=== PATIENT | female | born 1975 | race Caucasian/White ===

== ENCOUNTER 2018-06-10 18:53 | Emergency (ER) | payer SELFPAY ==
[~2018-06-10] VITALS: Ht 165.1 cm; Wt 95.3 kg
[2018-06-10] MEDS ORDERED: diphenhydrAMINE 50 MG/ML INJ (BENADRYL) IVP ONE (19:30)
[2018-06-10] MEDS ORDERED: NS IV 1000 ML 1,000 ML IV SCH (19:30)
[2018-06-10] MEDS ORDERED: KETOROLAC 30 MG/ML VIAL IVP ONE (19:30)
[2018-06-10] MEDS ORDERED: PROCHLORPERAZINE 10 MG/2ML INJ (COMPAZINE) IV ONE (19:30)
--- NOTE | 2018-06-10 19:34 | ED Headache ---
General Chief Complaint: Head/Cervical Problems Stated Complaint: MIGRAINE,FACIAL NUMBNESS Source: patient Exam Limitations: no limitations History of Present Illness Date Seen by Provider: Jun 10, 2018 Time Seen by Provider: 19:31 Initial Comments To ER with reports of a migraine and facial numbness. She has a history of migraines for the past 17 years, it started when she was with her daughter. She takes Topamax daily but this does not seem to be helping. She used to get migraines very infrequently but for the past 2-3 months has had them about twice per week. She has facial numbness with this and this includes both sides of her face and the entire upper middle and lower parts of the face. She denies any other tingling or neurologic symptoms. 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 Timing/Duration: increasing Severity/Quality: moderate Location: frontal Associated Symptoms: denies symptoms Allergies and Home Medications Allergies Coded Allergies: No Known Drug Allergies (Unverified , 06/10/18) Home Medications Divalproex Sodium 250 Mg Tablet.dr, 250 MG PO BID Prescribed by: KYM MEJIA on 06/10/182012 Patient Home Medication List Home Medication List Reviewed: Yes Review of Systems Review of Systems Constitutional: see HPI Eyes: No Symptoms Reported Ears, Nose, Mouth, Throat: no symptoms reported Respiratory: no symptoms reported Cardiovascular: no symptoms reported Genitourinary: no symptoms reported Musculoskeletal: no symptoms reported Skin: no symptoms reported Psychiatric/Neurological: No Symptoms Reported Past Vndwque-Cjcdjm-Qdiqvq Hx Patient Social History Recent Foreign Travel: No Contact w/Someone Who Travel: No Physical Exam Vital Signs Vital Signs - First Documented 06/10/18 19:07 Temp 97.8 Pulse 80 Resp 16 B/P (MAP) 133/78 (96) Pulse Ox 99 O2 Delivery Room Air Capillary Refill : Height, Weight, BMI Height: '" Weight: lbs. oz. kg; BMI Method: General Appearance: WD/WN, no apparent distress, other (face is symmetrical, no drooping. No slurred speech. Conversation is appropriate. No arm drift) HEENT: PERRL/EOMI, normal ENT inspection Neck: non-tender, full range of motion Respiratory: no respiratory distress, no accessory muscle use Gastrointestinal: normal bowel sounds, non tender, soft Extremities: normal range of motion, non-tender Psychiatric: alert, oriented x 3 Crainal Nerves: normal hearing, normal speech, PERRL Skin: normal color, warm/dry Progress/Results/Core Measures Results/Orders Lab Results Laboratory Tests Test 06/10/18 19:20 Range/Units White Blood Count 7.6 4.3-11.0 10^3/uL Red Blood Count 4.64 4.35-5.85 10^6/uL Hemoglobin 14.3 11.5-16.0 G/DL Hematocrit 43 35-52 % Mean Corpuscular Volume 92 80-99 FL Mean Corpuscular Hemoglobin 31 25-34 PG Mean Corpuscular Hemoglobin Concent 34 32-36 G/DL Red Cell Distribution Width 12.8 10.0-14.5 % Platelet Count 255 130-400 10^3/uL Mean Platelet Volume 10.6 H 7.4-10.4 FL Neutrophils (%) (Auto) 48 42-75 % Lymphocytes (%) (Auto) 39 12-44 % Monocytes (%) (Auto) 10 0-12 % Eosinophils (%) (Auto) 3 0-10 % Basophils (%) (Auto) 1 0-10 % Neutrophils # (Auto) 3.6 1.8-7.8 X 10^3 Lymphocytes # (Auto) 2.9 1.0-4.0 X 10^3 Monocytes # (Auto) 0.7 0.0-1.0 X 10^3 Eosinophils # (Auto) 0.3 0.0-0.3 10^3/uL Basophils # (Auto) 0.1 0.0-0.1 10^3/uL Sodium Level 142 135-145 MMOL/L Potassium Level 3.8 3.6-5.0 MMOL/L Chloride Level 109 H 98-107 MMOL/L Carbon Dioxide Level 23 21-32 MMOL/L Anion Gap 10 5-14 MMOL/L Blood Urea Nitrogen 13 7-18 MG/DL Creatinine 0.93 0.60-1.30 MG/DL Estimat Glomerular Filtration Rate > 60 BUN/Creatinine Ratio 14 Glucose Level 97 70-105 MG/DL Calcium Level 9.1 8.5-10.1 MG/DL Corrected Calcium 9.1 8.5-10.1 MG/DL Total Bilirubin 0.3 0.1-1.0 MG/DL Aspartate Amino Transf (AST/SGOT) 17 5-34 U/L Alanine Aminotransferase (ALT/SGPT) 11 0-55 U/L Alkaline Phosphatase 90 40-136 U/L Total Protein 6.8 6.4-8.2 GM/DL Albumin 4.0 3.2-4.5 GM/DL My Orders Orders - KYM MEJIA APRN Cbc With Automated Diff (06/10/18 19:29) Comprehensive Metabolic Panel (06/10/18 19:29) Ct Head Wo (06/10/18 19:29) Iv Heplock-Insert (Order) (06/10/18 19:29) Ketorolac Injection (Toradol Injection) (06/10/18 19:30) Prochlorperazine Injection (Compazine In (06/10/18 19:30) Diphenhydramine Injection (Benadryl Inje (06/10/18 19:30) Ns Iv 1000 Ml (Sodium Chloride 0.9%) (06/10/18 19:30) Medications Given in ED Current Medications Medications Dose Ordered Sig/Jarod Route Start Time Stop Time Status Last Admin Dose Admin Diphenhydramine HCl 25 mg ONCE ONCE IVP 06/10/18 19:30 06/10/18 19:31 DC 06/10/18 19:49 25 MG Ketorolac Tromethamine 15 mg ONCE ONCE IVP 06/10/18 19:30 06/10/18 19:31 DC 06/10/18 19:49 15 MG Prochlorperazine Edisylate 5 mg ONCE ONCE IV 06/10/18 19:30 06/10/18 19:31 DC 06/10/18 19:49 5 MG Vital Signs/I&O 06/10/18 19:07 Temp 97.8 Pulse 80 Resp 16 B/P (MAP) 133/78 (96) Pulse Ox 99 O2 Delivery Room Air Departure Impression Primary Impression: Headache Qualified Codes: R51 - Headache Disposition: 01 HOME, SELF-CARE Condition: Improved Departure-Patient Inst. Decision time for Depature: 20:11 Referrals: NO,LOCAL PHYSICIAN (PCP) Primary Care Physician Patient Instructions: Migraine Headache (DC) Add. Discharge Instructions: 1. Return to ER for any concerns 2. Follow-up with your doctor next week 3. All discharge instructions reviewed with patient and/or family. Voiced understanding. Scripts Divalproex Sodium (Depakote) 250 Mg Tablet. 250 MG PO BID, #20 TAB Prov: KYM MEJIA APRN 06/10/18 Work/School Note: Work Release Form Date Seen in the Emergency Department: Jun 10, 2018 Return to Work: Jun 11, 2018 KYM MEJIA APRN Jun 10, 2018 19:34
[2018-06-10 19:36] LABS: BASOPHILS # (AUTO) 0.1 10^3/uL (0.0-0.1); BASOPHILS % (AUTO) 1 % (0-10); EOSINOPHILS # (AUTO) 0.3 10^3/uL (0.0-0.3); EOSINOPHILS % (AUTO) 3 % (0-10); HEMATOCRIT 43 % (35-52); HEMOGLOBIN 14.3 G/DL (11.5-16.0); LYMPHOCYTES # (AUTO) 2.9 X 10^3 (1.0-4.0); LYMPHOCYTES % (AUTO) 39 % (12-44); MEAN CORPUSCULAR HEMOGLOBIN 31 PG (25-34); MEAN CORPUSCULAR HGB CONC 34 G/DL (32-36); MEAN CORPUSCULAR VOLUME 92 FL (80-99); MEAN PLATELET VOLUME 10.6 FL (7.4-10.4); MONOCYTES # (AUTO) 0.7 X 10^3 (0.0-1.0); MONOCYTES % (AUTO) 10 % (0-12); NEUTROPHILS # (AUTO) 3.6 X 10^3 (1.8-7.8); NEUTROPHILS % (AUTO) 48 % (42-75); PLATELET COUNT 255 10^3/uL (130-400); RED BLOOD COUNT 4.64 10^6/uL (4.35-5.85); RED CELL DISTRIBUTION WIDTH 12.8 % (10.0-14.5); WHITE BLOOD COUNT 7.6 10^3/uL (4.3-11.0)
[2018-06-10 19:47] LABS: ALANINE AMINOTRANSFERASE 11 U/L (0-55); ALKALINE PHOSPHATASE 90 U/L (40-136); BILIRUBIN,TOTAL 0.3 MG/DL (0.1-1.0); BUN/CREATININE RATIO 14; CALCIUM 9.1 MG/DL (8.5-10.1); CARBON DIOXIDE 23 MMOL/L (21-32); CHLORIDE 109 MMOL/L (98-107); CREATININE SERUM 0.93 MG/DL (0.60-1.30); GFR ESTIMATED > 60; GLUCOSE 97 MG/DL (70-105); POTASSIUM 3.8 MMOL/L (3.6-5.0); SODIUM 142 MMOL/L (135-145); TOTAL PROTEIN 6.8 GM/DL (6.4-8.2)
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
[2018-06-10] MEDS ORDERED: DIVA250T2 PO (20:13)
[2018-06-10 20:47] VITALS: BP 134/90
== END 2018-06-10 20:49 | disposition home or self-care (01) ==
LOC: ER 18:56
DX: R51 Headache (principal); Z86.69 Personal history of other diseases of the nervous system and sense organs
CPT/HCPCS: 36415; 70450; 80053; 85025

== ENCOUNTER 2018-08-11 12:30 | Emergency (ER) | payer SELFPAY ==
[~2018-08-11] VITALS: Ht 165.1 cm; Wt 95.3 kg
[~2018-08-11 12:30] MED LIST: DIVA250T2 PO
--- NOTE | 2018-08-11 12:45 | NUR ---
TRIAGE PROCESS WHILE IN WAITING ROOM AWAITING RM OPENINGS. TRIAGE INFO PER ARIELA RN TO THIS RN.
--- NOTE | 2018-08-11 13:40 | NUR ---
TO WAITING RM TO RE-ASSESS PT AND FIND PT IS OUTSIDE WALKING AND SMOKING.
--- NOTE | 2018-08-11 13:50 | NUR ---
PT IS IN WAITING RM NOW. NO CHG IN ASSESSMENTS. PT DENIES TO THIS NURSE ANY INJURY.
--- NOTE | 2018-08-11 14:20 | NUR ---
TO ED02 AMBULATORY. PT UPDATED DR WILL BE UPDATED SHE IS IN ROOM. PT HAS HAD HER XRAY WHILE WAITING IN WAITING ROOM.
--- NOTE | 2018-08-11 14:23 | NUR ---
DR AGUILERA TO .
--- NOTE | 2018-08-11 14:28 | ED Upper Extremity ---
General Chief Complaint: Upper Extremity Stated Complaint: LT HAND INJ Source: patient Exam Limitations: no limitations History of Present Illness Date Seen by Provider: Aug 11, 2018 Time Seen by Provider: 14:15 Initial Comments Patient presents to ER by private conveyance with chief complaint of approximate 1 week ago she started having some pain and swelling in her left hand. She denies knowing how it happened. She has some old bruising. She's never had a fracture or surgery to this hand before. Does not take any medicines. She has no other significant medical history. She says she does not normally like going to doctors so that is why she put off getting checked out but now she's having some decreased range of motion in her fifth digit. The patient is left-handed. Allergies and Home Medications Allergies Coded Allergies: No Known Drug Allergies (Unverified , 06/10/18) Home Medications Divalproex Sodium 250 Mg Tablet.dr, 250 MG PO BID Prescribed by: KYM MEJIA on 06/10/182012 Patient Home Medication List Home Medication List Reviewed: Yes Review of Systems Constitutional: No chills, No malaise EENTM: No ear pain, No eye pain Respiratory: No cough Gastrointestinal: No abdominal pain, No constipation, No nausea Genitourinary: No discharge, No dysuria Past Boieitv-Hjjcsy-Erfbri Hx Patient Social History Alcohol Use: Denies Use Smoking Status: Current Everyday Smoker Type Used: Cigarettes 2nd Hand Smoke Exposure: Yes Recent Foreign Travel: No Recent Hopitalizations: No Seasonal Allergies Seasonal Allergies: No Past Medical History Surgeries: Yes (CYST REMOVAL ON BRAIN ) Section, Cystectomy Respiratory: No Cardiac: No Neurological: Yes Headaches /Migraines Genitourinary: No Gastrointestinal: No Musculoskeletal: No Endocrine: No HEENT: No Cancer: No Psychosocial: Yes Anxiety, Depression Integumentary: No Blood Disorders: No Adverse Reaction/Blood Tranf: No Physical Exam Vital Signs Capillary Refill : Height, Weight, BMI Height: 5'5.00" Weight: 210lbs. oz. 95.403939jj; BMI Method:Stated General Appearance: WD/WN, no apparent distress HEENT: PERRL/EOMI, normal ENT inspection, pharynx normal Cardiovascular: normal peripheral pulses, regular rate, rhythm Wrist: Yes normal inspection, Yes non-tender, Yes no evidence of injury, Yes normal ROM Hand: normal ROM, Left, ecchymosis (medial portion of the palm and dorsum of her hand consistent with a possible boxer's fracture from striking something with her hand.), limited ROM (Celexa about 10% total flexion of the fifth digit but full extension of the wrist and all the fingers.), soft tissue tenderness ( third fourth and fifth metacarpals), swelling Neurologic/Psychiatric: no motor/sensory deficits, alert, oriented x 3 Progress/Results/Core Measures Results/Orders My Orders Orders - HUMBERTO AGUILERA Hand 3 View Left (08/11/18 13:55) Progress Progress Note : Time: 14:27 Progress Note She has a large healing bruise looks to be about 7-10 days old over the third fourth and fifth metacarpals and carpals consistent with possible boxer fracture. Mild swelling not much deformity. Range of motion is pretty good. We' ll get an x-ray. She's declining anything for pain. She's probably not get much benefit from ice at this point. Diagnostic Imaging Diagonstic Imaging: Xray Plain Films/CT/US/NM/MRI: hand (left) Comments [facility], [place] NAME: GAURAV BLAKELY [facility] REC#: [id number] PT STATUS: REG ER : 1975 PHYSICIAN: HUMBERTO AGUILERA MD ADMIT DATE: 08/11/18/ER FS Draft Date of Exam:08/11/18 HAND 3 VIEW LEFT INDICATION: Left hand pain and injury. TIME OF EXAM: 01:47 p.m. Three views of left hand demonstrate longitudinally oriented fracture involving the proximal phalanx of the fifth finger. Fracture line does extend to the articular surface of the MCP joint. No significant displacement or angulation is seen. Remaining phalanges are intact. Metacarpals are intact. Carpus is unremarkable. IMPRESSION: Proximal phalangeal fracture of the fifth finger with intra-articular extension to the MCP joint. Dictated on workstation # [id number] Dict: 08/11/18 1429 Trans: 08/11/18 1432 [facility] [id number] Interpreted by: TONI GIRALDO MD Electronically signed by: Reviewed: Reviewed by Me Departure Impression Primary Impression: Fracture of phalanx of hand Qualified Codes: S62.609A - Fracture of unspecified phalanx of unspecified finger, initial encounter for closed fracture Disposition: 01 HOME, SELF-CARE Condition: Stable Departure-Patient Inst. Decision time for Depature: 14:59 Referrals: SHELBIE STEWART (PCP) Primary Care Physician BLAKE LAND DO Patient Instructions: Finger Fracture (DC) Add. Discharge Instructions: Your finger fracture of the pinky finger has some difficulties feeling as I recommend that you follow up this week with orthopedics at [facility]. Called them and request an appointment today. Use Tylenol and/or ibuprofen as needed for pain. Keep your hand swells a lot you can apply an ice pack to it. Elevate her hand above the level of your heart for swelling or pain. You may also tape your pinky finger to your ring finger as a splint to reduce the movement and therefore decrease the pain. If you have breakthrough pain is not controlled with these measures then you may take one tablet of hydrocodone every 6 hours as needed. All discharge instructions reviewed with patient and/or family. Voiced understanding. Scripts Hydrocodone Bit/Acetaminophen (Hydrocodone/Acetaminophen 5/325mg Tablet) 1 Tab Tab 1 EACH PO Q6H PRN for PAIN-MODERATE MDD 10, #10 TAB 0 Refills Prov: HUMBERTO AGUILERA 08/11/18 Copy Copies To 1: BLAKE LAND DO HUMBERTO AGUILERA Aug 11, 2018 14:28
--- NOTE | 2018-08-11 14:32 | Diagnostic Imaging Report ---
INDICATION: Left hand pain and injury. TIME OF EXAM: 01:47 p.m. Three views of left hand demonstrate longitudinally oriented fracture involving the proximal phalanx of the fifth finger. Fracture line does extend to the articular surface of the MCP joint. No significant displacement or angulation is seen. Remaining phalanges are intact. Metacarpals are intact. Carpus is unremarkable. IMPRESSION: Proximal phalangeal fracture of the fifth finger with intra-articular extension to the MCP joint. Dictated by: Dictated on workstation # [id number]
[2018-08-11] MEDS ORDERED: ACHD5005 PO (15:01)
[2018-08-11 15:08] VITALS: BP 137/87
== END 2018-08-11 15:08 | disposition home or self-care (01) ==
LOC: EDUNIT# 12:30 → ER FS 12:34
DX: S62.617A Displaced fracture of proximal phalanx of left little finger, initial encounter for closed fracture (principal); G43.909 Migraine, unspecified, not intractable, without status migrainosus; F41.9 Anxiety disorder, unspecified; F32.9 Major depressive disorder, single episode, unspecified; F17.210 Nicotine dependence, cigarettes, uncomplicated; Z98.890 Other specified postprocedural states; Z90.6 Acquired absence of other parts of urinary tract; X58.XXXA Exposure to other specified factors, initial encounter
CPT/HCPCS: 73130

== ENCOUNTER 2018-09-25 11:46 | Emergency (ER) | payer SELFPAY ==
[~2018-09-25] VITALS: Ht 165.1 cm; Wt 95.3 kg
[~2018-09-25 11:46] MED LIST changes: +ACHD5005 PO
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
[2018-09-25 12:55] LABS: CLARITY,URINE CLEAR; COLOR,URINE YELLOW; PROTEIN,URINE NEGATIVE (NEGATIVE)
[2018-09-25 12:56] LABS: BACTERIA,URINE NEGATIVE /HPF; BILIRUBIN,URINE NEGATIVE (NEGATIVE); GLUCOSE, URINE (UA) NEGATIVE (NEGATIVE); KETONES,URINE NEGATIVE (NEGATIVE); LEUKOCYTE ESTERASE ,URINE NEGATIVE (NEGATIVE); NITRITE,URINE NEGATIVE (NEGATIVE); RBC,URINE RARE /HPF; SQUAMOUS EPITHELIAL CELL,UR 0-2 /HPF; UROBILINOGEN,URINE 0.2 MG/DL (NORMAL)
[2018-09-25 12:57] LABS: AMPHETAMINE SCREEN, URINE NEGATIVE (NEGATIVE); BARBITURATE SCREEN URINE NEGATIVE (NEGATIVE); BENZODIAZEPINES SCREEN URINE NEGATIVE (NEGATIVE); CANNABINOID SCREEN, URINE NEGATIVE (NEGATIVE); COCAINE SCREEN URINE NEGATIVE (NEGATIVE); METHADONE STAT NEGATIVE (NEGATIVE); METHAMPHETAMINE SCREEN URINE S POSITIVE (NEGATIVE); OPIATE SCREEN URINE NEGATIVE (NEGATIVE); OXYCODONE STAT NEGATIVE (NEGATIVE); TRICYCLIC ANTIDEPRESSANTS SCRE NEGATIVE (NEGATIVE)
[2018-09-25 12:58] LABS: HEMATOCRIT 46 % (35-52); HEMOGLOBIN 15.6 G/DL (11.5-16.0); MEAN CORPUSCULAR HEMOGLOBIN 31 PG (25-34); MEAN CORPUSCULAR HGB CONC 34 G/DL (32-36); MEAN CORPUSCULAR VOLUME 91 FL (80-99); WHITE BLOOD COUNT 6.7 10^3/uL (4.3-11.0)
[2018-09-25 12:58] LABS: PROPOXYPHENE STAT NEGATIVE (NEGATIVE)
[2018-09-25 12:59] LABS: BASOPHILS % (AUTO) 1 % (0-10); EOSINOPHILS % (AUTO) 1 % (0-10); LYMPHOCYTES # (AUTO) 2.3 X 10^3 (1.0-4.0); LYMPHOCYTES % (AUTO) 34 % (12-44); MEAN PLATELET VOLUME 10.7 FL (7.4-10.4); MONOCYTES # (AUTO) 0.4 X 10^3 (0.0-1.0); MONOCYTES % (AUTO) 6 % (0-12); NEUTROPHILS # (AUTO) 3.9 X 10^3 (1.8-7.8); NEUTROPHILS % (AUTO) 58 % (42-75); PLATELET COUNT 259 10^3/uL (130-400)
[2018-09-25 13:00] LABS: BASOPHILS # (AUTO) 0.1 10^3/uL (0.0-0.1); CARBON DIOXIDE 21 MMOL/L (21-32); CHLORIDE 106 MMOL/L (98-107); EOSINOPHILS # (AUTO) 0.1 10^3/uL (0.0-0.3); POTASSIUM 3.8 MMOL/L (3.6-5.0); SODIUM 141 MMOL/L (135-145)
[2018-09-25 13:01] LABS: ALANINE AMINOTRANSFERASE 16 U/L (0-55); ALBUMIN 4.2 GM/DL (3.2-4.5); ALKALINE PHOSPHATASE 99 U/L (40-136); BILIRUBIN,TOTAL 0.3 MG/DL (0.1-1.0); BUN/CREATININE RATIO 5; CALCIUM 9.6 MG/DL (8.5-10.1); CREATININE SERUM 0.95 MG/DL (0.60-1.30); GFR ESTIMATED > 60; GLUCOSE 115 MG/DL (70-105); SALICYLATE < 0.3 MG/DL (5.0-20.0); TOTAL PROTEIN 7.6 GM/DL (6.4-8.2)
[2018-09-25 13:02] LABS: ACETAMINOPHEN < 10 UG/ML (10-30)
[2018-09-25 14:54] VITALS: BP 145/92
== END 2018-09-25 14:57 | disposition home or self-care (01) ==
LOC: EDUNIT# 11:46 → ER FS 11:49
DX: F32.9 Major depressive disorder, single episode, unspecified (principal); G43.909 Migraine, unspecified, not intractable, without status migrainosus; F41.9 Anxiety disorder, unspecified; Z90.710 Acquired absence of both cervix and uterus; Z91.14 Patient's other noncompliance with medication regimen; Z77.22 Contact with and (suspected) exposure to environmental tobacco smoke (acute) (chronic); Z98.890 Other specified postprocedural states; Z90.6 Acquired absence of other parts of urinary tract
CPT/HCPCS: 36415; 80053; 80306; 80320; 80329; 81000; 85025; 93005

== ENCOUNTER 2019-01-08 22:39 | Emergency (ER) | payer SELFPAY ==
[~2019-01-08] VITALS: Ht 165.1 cm; Wt 95.3 kg
[2019-01-09] MEDS ORDERED: TRIM/SULFAMETH 160/800 (SEPTRA DS) TAB PO ONE (00:45)
[2019-01-09] MEDS ORDERED: oxyCODONE/APAP 5/325MG (PERCOCET 5) TABLET PO ONE (01:00)
[2019-01-09] MEDS ORDERED: SULF1TAB35 PO (01:04)
--- NOTE | 2019-01-09 01:04 | ED General ---
General Chief Complaint: Bite-Animal/Human/Insect Stated Complaint: SPIDER BITE Nursing Triage Note: Patient states that she believes she has a spider bite under her left breast. Patient noticed the bite 01/07/19 and believes that she has been running a fever. Patient has a small yellow/green bite with redness and warmth around the bite. Patient rates her pain at a 5. Nursing Sepsis Screen: No Definite Risk Source of Information: Patient Exam Limitations: No Limitations History of Present Illness Date Seen by Provider: Jan 09, 2019 Time Seen by Provider: 00:34 Initial Comments This 43-year-old woman presents to the emergency room with complaints of "spider bite" under the left breast that has been present for about 2 days. She reports subjective fever but is afebrile on presentation. She has erythema surrounding the abscess in the skin fold of the left breast that extends up to the nipple. The abscess has not been draining. Allergies and Home Medications Allergies Coded Allergies: Penicillins (Verified Allergy, Intermediate, Hives, 01/08/19) Home Medications Divalproex Sodium 250 Mg Tablet.dr, 250 MG PO BID Prescribed by: KYM MEJIA on 06/10/182012 Hydrocodone Bit/Acetaminophen 1 Tab Tab, 1 EACH PO Q6H PRN for PAIN-MODERATE Prescribed by: HUMBERTO AGUILERA on 08/11/18 1501 Sulfamethoxazole/Trimethoprim 1 Each Tablet, 1 EACH PO BID Prescribed by: SALLY DE LEÓN on 01/09/19 0104 Patient Home Medication List Home Medication List Reviewed: Yes Review of Systems Review of Systems Constitutional: see HPI EENTM: no symptoms reported Respiratory: no symptoms reported Cardiovascular: no symptoms reported Gastrointestinal: no symptoms reported Genitourinary: no symptoms reported : No Musculoskeletal: no symptoms reported Skin: see HPI Psychiatric/Neurological: No Symptoms Reported Hematologic/Lymphatic: No Symptoms Reported Past [id number] Hx Past Med/Social Hx: Reviewed Nursing Past Med/Soc Hx Patient Social History Alcohol Use: Denies Use Recreational Drug Use: No Smoking Status: Current Everyday Smoker Type Used: Cigarettes 2nd Hand Smoke Exposure: Yes Recent Foreign Travel: No Contact w/Someone Who Travel: No Recent Infectious Disease Expo: No Recent Hopitalizations: No Physical Abuse: No Sexual Abuse: No Mistreated: No Fear: No Seasonal Allergies Seasonal Allergies: No Past Medical History Surgeries: Yes (Brain Surgery to remove Cyst) Appendectomy, Section, Hysterectomy Respiratory: No Cardiac: No Neurological: No Headaches /Migraines [employer] History: Hysterectomy Genitourinary: No Gastrointestinal: No Musculoskeletal: No Endocrine: No HEENT: No Cancer: No Psychosocial: No Anxiety, Depression Integumentary: No Blood Disorders: No Adverse Reaction/Blood Tranf: No Physical Exam Vital Signs Vital Signs - First Documented 01/08/19 23:29 Temp 98.9 Pulse 80 Resp 18 B/P (MAP) 156/88 (110) Pulse Ox 100 O2 Delivery Room Air Capillary Refill : Less Than 3 Seconds Height, Weight, BMI Height: 5'5.00" Weight: 210lbs. 0oz. [id number]; BMI Method:Stated General Appearance: No Apparent Distress, WD/WN HEENT: PERRL/EOMI, Normal ENT Inspection Neck: Normal Inspection Respiratory: Lungs Clear, Normal Breath Sounds, No Accessory Muscle Use Cardiovascular: Regular Rate, Rhythm, No Edema, No Murmur Extremity: Normal Inspection, No Pedal Edema Neurologic/Psychiatric: Alert, Oriented x3, No Motor/Sensory Deficits, Normal Mood/Affect Skin: Warm/Dry, Other (abscess with induration and localized erythema in the skin fold of the left breast. There is a central head that ruptured after examination and used purulent drainage. Erythema extends from the abscess up to the central nipple region.) Procedures/Interventions I&D : Blade Size: 10 Progress Skin was cleaned with alcohol. The opening of the abscess was extended with a scalpel a proximally 5 mm. No additional purulent material was expressed after opening was expanded. Culture was obtained. Progress/Results/Core Measures Suspected Sepsis Recent Fever Within 48 Hours: Yes Infection Criteria Present: Suspected New Infection New/Unexplained Altered Menta: No Sepsis Screen: No Definite Risk SIRS Temperature:98.9 Pulse: 80 Respiratory Rate: 18 Blood Pressure 156 /88 Mean: 110 Results/Orders My Orders Orders - SALLY HENDRICKS MD Wound Culture (01/09/19 00:42) Sulfamethoxazole/Trimet Ds Tab (Bactrim (01/09/19 00:45) Oxycodone/Apap 5/325mg Tablet (Percocet (01/09/19 01:00) Medications Given in ED Current Medications Medications Dose Ordered Sig/Jarod Route Start Time Stop Time Status Last Admin Dose Admin Oxycodone/ Acetaminophen 1 tab ONCE ONCE PO 01/09/19 01:00 01/09/19 01:01 DC 01/09/19 01:08 1 TAB Trimethoprim/ Sulfamethoxazole 1 ea ONCE ONCE PO 01/09/19 00:45 01/09/19 00:46 DC 01/09/19 01:08 1 EA Vital Signs/I&O 01/08/19 01/09/19 23:29 01:09 Temp 98.9 98.8 Pulse 80 86 Resp 18 20 B/P (MAP) 156/88 (110) 148/82 (104) Pulse Ox 100 100 O2 Delivery Room Air Room Air Capillary Refill : Less Than 3 Seconds Blood Pressure Mean: 110 Progress Note : Progress Note Abscess ruptured after exam. Opening was expanded with scalpel. Patient was given a Percocet tablet and Bactrim DS prior to departure. Departure Impression Primary Impression: Breast abscess Additional Impressions: Cellulitis of breast Encounter for incision and drainage procedure Disposition: HOME, SELF-CARE Condition: Improved Departure-Patient Inst. Decision time for Depature: 01:02 Referrals: SHELBIE STEWART (PCP/Family) Primary Care Physician Patient Instructions: Skin Abscess, Cellulitis (Skin Infection), Adult (DC) Add. Discharge Instructions: Complete your antibiotics as prescribed. For pain you may take ibuprofen up to 600 mg every 6 hours as needed. Add Tylenol (acetaminophen) up to 1000 mg every 6 hours as needed for additional pain relief. Return to care if you have worsening symptoms including significant expansion of the area of redness, fevers greater than 100, etc. Follow-up with your primary care provider on Friday for repeat examination and review of wound culture. Soak your abscess with warm compresses or in a warm bath with chlorhexidine soap 2 or 3 times a day until wound stops draining. All discharge instructions reviewed with patient and/or family. Voiced understanding. Scripts Sulfamethoxazole/Trimethoprim (Bactrim Ds Tablet) 1 Each Tablet 1 EACH PO BID, #14 TAB Prov: SALLY HENDRICKS MD 01/09/19 SALLY HENDRICKS MD Jan 09, 2019 01:04
[2019-01-09 01:09] VITALS: BP 148/82
== END 2019-01-09 01:09 | disposition home or self-care (01) ==
LOC: EDUNIT# 22:39 → ER FS 22:40
DX: N61.1 Abscess of the breast and nipple (principal); N61.0 Mastitis without abscess; G43.909 Migraine, unspecified, not intractable, without status migrainosus; F41.9 Anxiety disorder, unspecified; F32.9 Major depressive disorder, single episode, unspecified; F17.210 Nicotine dependence, cigarettes, uncomplicated; Z88.0 Allergy status to penicillin; Z90.49 Acquired absence of other specified parts of digestive tract; Z90.710 Acquired absence of both cervix and uterus
CPT/HCPCS: 87070; 87077; 87205; 99283

== ENCOUNTER → 2019-12-13 | Outpatient (CLI) | payer SELFPAY ==
[~2019-12-13] MED LIST changes: +SULF1TAB35 PO
--- NOTE | 2019-12-13 16:26 | Diagnostic Imaging Report ---
PROCEDURE: MR imaging cervical spine without contrast. TECHNIQUE: Multiplanar, multisequence MR imaging of the cervical spine was performed without contrast. INDICATION: Neck pain with bilateral numbness and tingling in the arms and hands. COMPARISON: None. FINDINGS: No acute fracture or dislocation is seen in the cervical spine. There is normal alignment of the cervical spine. The vertebral body heights and disc spaces are well maintained. The bone marrow signal is unremarkable. No focal osseous lesions. The craniocervical junction is maintained. The cervical spinal cord demonstrates normal intrinsic signal. No epidural collections are seen. The included brainstem and posterior fossa have normal appearance. No significant degenerative changes are seen in the cervical spine. No spinal canal or foraminal stenosis. The soft tissues of neck are unremarkable. IMPRESSION: 1. No acute fracture or dislocation of the cervical spine. 2. No significant spinal canal or foraminal stenosis. Dictated by: Dictated on workstation # [id number]
== END ==
LOC: RAD 15:18
PROVIDERS: ATTEND Nurse Practitioner Family
DX: M54.2 Cervicalgia (principal); R20.2 Paresthesia of skin; R20.0 Anesthesia of skin
CPT/HCPCS: 72141

== ENCOUNTER → 2021-03-09 | Outpatient (CLI) | payer SELFPAY ==
[~2021-03-09] MED LIST changes: -SULF1TAB35 PO; +SULF1TAB38 PO
--- NOTE | 2021-03-09 18:02 | Diagnostic Imaging Report ---
EXAMINATION: Magnetic resonance imaging of the right shoulder without contrast. DATE: March 09, 2021. COMPARISON: None. HISTORY: 45-year-old female, right shoulder pain. TECHNIQUE: Magnetic Resonance Imaging sequences were performed of the shoulder without contrast. FINDINGS: ROTATOR CUFF, LIGAMENTS, TENDONS, AND MUSCLES: The supraspinatus, infraspinatus, teres minor, and subscapularis tendons and muscles are intact. There is normal rotator cuff muscle bulk and signal. LONG HEAD OF BICEPS: The biceps labral attachment and long head of the biceps tendon is intact. The long head of the biceps tendon is normally positioned within the bicipital groove. GLENOHUMERAL JOINT: The humeral head is well positioned relative to the glenoid. There is fluid undermining the biceps labral attachment. There is question of extension of fluid posteriorly in the region of the posterior superior labrum. This does raise the question of a posterior superior labral tear. There is no identified paralabral cyst. This is not particularly well evaluated on non-arthrogram imaging. There is no identified paralabral cyst. The articular cartilage is grossly intact. There is no joint effusion. ACROMIOCLAVICULAR JOINT: The acromioclavicular joint is normally aligned. The coracoclavicular and coracoacromial ligaments are intact. There are mild acromioclavicular degenerative changes without large undersurface osteophyte. BONE: There is no os acromiale. There is no Hill-Sachs deformity. There is no acute fracture, bone contusion, or evidence of osteonecrosis. There is degenerative related marrow edema adjacent to the acromioclavicular joint. BURSAE AND SOFT TISSUES: The bursae and soft tissue surrounding the shoulder are unremarkable. IMPRESSION: 1. Intact rotator cuff and proximal long head of biceps tendon. 2. Mild acromioclavicular degenerative changes without large undersurface osteophyte. 3. Questionable tear of the superior and posterior superior labrum without paralabral cyst. This would be better evaluated on dedicated MRI arthrogram exam as needed. 4. Additional glenohumeral joint assessment is unremarkable. 5. No acute fracture, bone contusion, or evidence of osteonecrosis. Dictated by: Dictated on workstation # [id number]
== END ==
LOC: RAD 09:30
PROVIDERS: ATTEND Nurse Practitioner Family
DX: M43.6 Torticollis (principal); M19.011 Primary osteoarthritis, right shoulder
CPT/HCPCS: 73221

== ENCOUNTER → 2022-01-14 | Outpatient (CLI) | payer SELFPAY ==
[~2022-01-14] MED LIST changes: +CATHETER FLUSH 10 ML SYR IV PRN; +HOLD METFORMIN - RECEIVED CONTRAST 20 ML VIAL IV SCH; +IOHEXOL 350 MG/ML 100 ML (OMNIPAQUE 350) VIAL IV ONE; +NS 100 ML (IVPB) BAG IV ONE
[2022-01-14 11:43] LABS: BASOPHILS # (AUTO) 0.1 10^3/uL (0.0-0.1); BASOPHILS % (AUTO) 1 % (0-10); EOSINOPHILS # (AUTO) 0.1 10^3/uL (0.0-0.3); EOSINOPHILS % (AUTO) 1 % (0-10); HEMATOCRIT 42 % (35-52); HEMOGLOBIN 14.4 g/dL (11.5-16.0); LYMPHOCYTES # (AUTO) 1.7 10^3/uL (1.0-4.0); LYMPHOCYTES % (AUTO) 22 % (12-44); MEAN CORPUSCULAR HEMOGLOBIN 31 pg (25-34); MEAN CORPUSCULAR HGB CONC 34 g/dL (32-36); MEAN CORPUSCULAR VOLUME 89 fL (80-99); MEAN PLATELET VOLUME 11.8 fL (9.0-12.2); MONOCYTES # (AUTO) 0.5 10^3/uL (0.0-1.0); MONOCYTES % (AUTO) 7 % (0-12); NEUTROPHILS # (AUTO) 5.2 10^3/uL (1.8-7.8); NEUTROPHILS % (AUTO) 69 % (42-75); PLATELET COUNT 168 10^3/uL (130-400); WHITE BLOOD COUNT 7.6 10^3/uL (4.3-11.0)
--- NOTE | 2022-01-14 12:00 | Diagnostic Imaging Report ---
CLINICAL INDICATION: Brain cyst removal in 2000. EXAM: Axial CT scan of the brain performed without and with 75 mL of Omnipaque 350 IV contrast with sagittal and coronal reformatted images. Auto Exposure Controls were utilized during the CT exam to meet ALARA standards for radiation dose reduction. COMPARISON: CT scan of the head without contrast dated 06/10/2018. FINDINGS: There is a small curvilinear area of low-density involving the right frontal lobe region related to parenchymal resection/postop changes. Adjacent bony defect is seen involving the right anterior skull region. There is no evidence of acute cerebral infarct, intracranial hemorrhage, or gross mass effect. There is no abnormal IV contrast enhancement. The brain parenchymal volume appears appropriate for patient's age. There is normal warner-white matter distinction. There is no significant midline shift or herniation. There is no evidence of hydrocephalus. The basal cisterns are unremarkable. The skull, extracranial soft tissue, and orbits are unremarkable. The paranasal sinuses are unremarkable. Temporal bones show no significant abnormality. IMPRESSION: 1: Stable CT scan of the brain with no evidence of acute intracranial process. 2: Stable postoperative changes to the right frontal region. Dictated by: Dictated on workstation # [id number]
[2022-01-14 12:35] LABS: CREATININE SERUM 0.88 MG/DL (0.60-1.30); POTASSIUM 4.3 MMOL/L (3.6-5.0)
[2022-01-14 12:36] LABS: ALBUMIN 4.3 GM/DL (3.2-4.5); BILIRUBIN,TOTAL 0.5 MG/DL (0.1-1.0); CALCIUM 9.4 MG/DL (8.5-10.1); TOTAL PROTEIN 7.2 GM/DL (6.4-8.2)
[2022-01-14 15:26] LABS: FREE T4 (FREE THYROXINE) 0.99 NG/DL (0.70-1.48)
== END ==
LOC: RAD FS 10:24
PROVIDERS: ATTEND Nurse Practitioner
DX: I10 Essential (primary) hypertension (principal); F41.8 Other specified anxiety disorders; Z98.890 Other specified postprocedural states
CPT/HCPCS: 36415; 70470; 80053; 80061; 84439; 84443; 85025; Q9967

== ENCOUNTER → 2022-04-01 | Outpatient (CLI) | payer OTHER ==
[~2022-04-01] MED LIST changes: -CATHETER FLUSH 10 ML SYR IV PRN; +GADOTERATE 0.5 MMOL/ML (CLARISCAN) 20 ML VIAL IV ONE; -HOLD METFORMIN - RECEIVED CONTRAST 20 ML VIAL IV SCH; -IOHEXOL 350 MG/ML 100 ML (OMNIPAQUE 350) VIAL IV ONE; -NS 100 ML (IVPB) BAG IV ONE
--- NOTE | 2022-04-01 18:47 | Diagnostic Imaging Report ---
PROCEDURE: MR imaging of the brain with and without contrast. TECHNIQUE: Multiplanar, multisequence MR imaging of the brain was performed with and without contrast. INDICATION: Migraines. History of intracranial cyst removal. COMPARISON: CT head without and with IV contrast 01/14/2022. FINDINGS: Again seen is the small right frontal craniotomy and postoperative change in the right frontal lobe. Mild nonspecific T2 hyperintensities in the supratentorial white matter. No abnormal intracranial enhancement. No restricted water diffusion. No hemosiderin deposition or evidence of intracranial hemorrhage. Normal morphology including the major midline structures, sella, posterior fossa, and cerebellopontine angle. Normal intracranial flow voids. No hydrocephalus or extra-axial fluid collections. The orbits are negative. Paranasal sinuses are clear. Scant fluid in the right mastoid. IMPRESSION: 1. Small right frontal craniotomy and postoperative change in the right frontal lobe. 2. No acute intracranial MRI findings. No evidence of acute infarction or hemorrhage. 3. Scant nonspecific fluid in the right mastoid. Dictated by: Dictated on workstation # [id number]
== END ==
LOC: RAD 14:35
PROVIDERS: ATTEND Nurse Practitioner
DX: G43.009 Migraine without aura, not intractable, without status migrainosus (principal); R20.2 Paresthesia of skin; Z98.890 Other specified postprocedural states
CPT/HCPCS: 70553

== ENCOUNTER → 2022-07-29 | Outpatient (CLI) | payer OTHER ==
[~2022-07-29] MED LIST changes: -GADOTERATE 0.5 MMOL/ML (CLARISCAN) 20 ML VIAL IV ONE; +RT-ALBUTEROL SULF 2.5 MG/3 ML PRE-MIX VIAL INH ONE
== END ==
LOC: RT 10:45
PROVIDERS: ATTEND Nurse Practitioner
DX: J44.9 Chronic obstructive pulmonary disease, unspecified (principal)
CPT/HCPCS: 94060; 94726; 94729